=== PATIENT | male | born 1940 | race Caucasian/White ===

== ENCOUNTER → 2016-12-08 | Outpatient (CLI) | payer MEDICARE, MEDICAID ==
[~2016-12-08] MED LIST: Iopamidol 755 MG/ML 50 ML Bottle IV ONE
--- NOTE | 2016-12-08 14:53 | CT ---
CT of the abdomen and pelvis with contrast. HISTORY: Abdominal pain TECHNIQUE: Axial CT images were obtained of the abdomen and pelvis following administration of 85 mL of Isovue-370 in the right antecubital fossa without complication. Coronal and sagittal reconstruct ions obtained. FINDINGS: The lung bases are clear, no pleural effusion. Coronary artery calcifications are present. Tiny hepatic hypodensities are noted, too small to fully characterize. Otherwise the liver appears n ormal. The spleen, adrenal glands, and pancreas appear normal. The gallbladder is normal. There is n o bulky retroperitoneal lymphadenopathy or abdominal ascites. Minimal sebastian mesentery appearance. The kidneys enhance and function symmetrically without evidence of obstructive uropathy. There is a cyst within the upper pole of the left kidney. The large and small bowel are normal in caliber without evidence of obstruction. No pericolonic or p ericecal inflammation or stranding. The urinary bladder appears normal. No suspicious osseous abnormalities identified. Postsurgical changes are noted within the lower lumb ar spine. IMPRESSION: 1. No acute findings demonstrated within the abdomen or pelvis. 2. Tiny hepatic hypodensities, likely representing cysts.
== END ==
LOC: MW.DI 12:20
PROVIDERS: ATTEND Nurse Practitioner Family
DX: R10.9 Unspecified abdominal pain (principal)
CPT/HCPCS: 74177; Q9967

== ENCOUNTER 2018-03-02 08:02 | Day surgery (SDC) | payer MEDICARE, MEDICAID ==
[~2018-03-02 08:02] MED LIST changes: -Iopamidol 755 MG/ML 50 ML Bottle IV ONE; +Lactated Ringers 1,000 ML IV SCH; +Sodium Chloride 0.9% 2.5 ML Syringe FLUSH PRN; +ceFAZolin 1 GM in Premix Bag 1 BAG IV ONE
--- NOTE | 2018-03-02 09:12 | PCM.PREANE ---
Preanesthetic Assessment - Anesthesia/Transfusion/Family Hx Anesthesia History: Prior Anesthesia Without Reaction Other Type of Anesthesia Reaction Comment: "hard to wake following anesthesia" "wants no versed" Family History of Anesthesia Reaction: No Transfusion History: No Prior Transfusion(s) Intubation History: Unknown - Review of Systems General: No Symptoms Pulmonary: No Symptoms Cardiovascular: No Symptoms Gastrointestinal: No Symptoms Neurological: Other (right hand numbness) Other: Reports: None - Physical Assessment NPO Status Date: 03/01/18 NPO Status Time: 20:00 O2 Sat by Pulse Oximetry: 97 Respiratory Rate: 15 Vital Signs: Last Vital Signs Temp 36.1 C 03/02/18 08:15 Pulse 54 L 03/02/18 08:15 Resp 15 03/02/18 08:15 BP 131/69 03/02/18 08:15 Pulse Ox 97 03/02/18 08:15 Height: 1.65 m Weight: 74.843 kg ASA Class: 2 Mental Status: Alert & Oriented x3 Airway Class: Mallampati = 2 Dentition: Reports: [place](s) (x4 upper front) Thyro-Mental Finger Breadths: 3 Mouth Opening Finger Breadths: 2 ROM/Head Extension: Limited/Partial Lungs: Clear to Auscultation, Normal Respiratory Effort Cardiovascular: Regular Rate, Regular Rhythm - Allergies Allergies/Adverse Reactions: Allergies Allergy/AdvReac Type Severity Reaction Status Date / Time No Known Allergies Allergy Verified 02/25/18 10:22 - Blood Blood Available: No - Anesthesia Plan Pre-Op Medication Ordered: None - Acknowledgements Anesthesia Type Planned: General Anesthesia Pt an Appropriate Candidate for the Planned Anesthesia: Yes Alternatives and Risks of Anesthesia Discussed w Pt/Guardian: Yes Pt/Guardian Understands and Agrees with Anesthesia Plan: Yes PreAnesthesia Questionnaire HEENT History: Reports: Hard of Hearing, Impaired Vision Other HEENT History: wears glasses, left hearing aid Gastrointestinal History: Reports: Other (See Below) Other Gastrointestinal History: occasional heartburn, "stomach migraines" Genitourinary History: Reports: BPH, Prostate Disorder Musculoskeletal History: Reports: Other (See Below) Other Musculoskeletal History: numbness to rt hand and arm due to neuro surgery to neck Psychiatric History: Reports: Anxiety, Depression Oncologic (Cancer) History: Reports: Basal Cell Carcinoma Other Oncologic History: basal cell ca to face Dermatologic History: Reports: None - Past Surgical History HEENT Surgical History: Reports: Myringotomy w Tube(s) Neurological Surgical History: Reports: C-Spine, Lumbar Spine Other Neurological Surgeries/Procedures: neck surgery x2, back surgery x1 Musculoskeletal Surgical History: Reports: Carpal Tunnel (bilateral), Shoulder Surgery (right shoulder) Dermatological Surgical History: Reports: Skin Biopsy - SUBSTANCE USE Smoking Status *Q: Former Smoker (long time ago) Recreational Drug Use History: No - HOME MEDS Home Medications: Home Meds clonazePAM [Klonopin] 0.5 mg PO ASDIRECTED PRN 07/05/14 [History] - CURRENT (IN HOUSE) MEDS Current Meds: Current Medications Lactated Ringer's (Ringers, Lactated) 1,000 mls @ 100 mls/hr IV ASDIRECTED [facility] Last Admin: 03/02/18 09:03 Dose: 100 mls/hr Sodium Chloride (Saline Flush) 2.5 ml FLUSH ASDIRECTED PRN PRN Reason: Keep Vein Open Discontinued Medications Cefazolin Sodium/Dextrose 1 gm (/ Premix) 50 mls @ 100 mls/hr IV ONCALL ONE Stop: 03/02/18 00:30
[2018-03-02] MEDS ORDERED: Lidocaine 2% 5 ML SDV ONE (09:25)
[2018-03-02] MEDS ORDERED: fentaNYL 250 MCG/5 ML SDV ONE (09:26)
[2018-03-02] MEDS ORDERED: Propofol 200 MG/20 ML SDV ONE ×2 (09:26→09:29)
[2018-03-02] MEDS ORDERED: Glycopyrrolate 0.2 MG/ML SDV ONE (09:57)
[2018-03-02] MEDS ORDERED: fentaNYL 100 MCG/2 ML SDV IVPUSH PRN (10:26)
[2018-03-02] MEDS ORDERED: Belladonna Alkaloids/Opium 16.2-30 MG Supp RECTAL PRN (10:41)
[2018-03-02] MEDS ORDERED: D5 1/2 NS w/ 20 mEq/L KCl 1,000 ML IV SCH (10:45)
--- NOTE | 2018-03-02 11:20 | PCM.POSTAN ---
POST ANESTHESIA ASSESSMENT - MENTAL STATUS Mental Status: Alert - RESPIRATORY Respiratory Status: Respiratory Rate WNL, Airway Patent, O2 Saturation Stable - CARDIOVASCULAR CV Status: Pulse Rate WNL - GASTROINTESTINAL GI Status: No Symptoms - PAIN Pain Score: 4 - POST OP HYDRATION Hydration Status: Adequate & Stable - OBSERVATIONS Free Text/Narrative:: no anesthesia problems
--- NOTE | 2018-03-02 11:43 | OR ---
SURGEON: Juanito Silver M.D. DATE OF PROCEDURE: 03/02/2018 PREOPERATIVE DIAGNOSES: 1. Urinary retention. 2. Small prostate. POSTOPERATIVE DIAGNOSES: 1. Urinary retention. 2. Small prostate. OPERATION: TURP. DESCRIPTION OF THE PROCEDURE: The patient was given general anesthesia, placed in dorsal lithotomy position, prepped and draped in sterile drapes. The 26-Bengali resectoscope was introduced into the bladder without difficulty, but with some resistance. The prostate was resected in the usual manner starting with the floor going along laterally and anteriorly. At the end of the resection, all prostatic chips were removed. Both ureteral orifices were intact. The area of the external sphincter was intact. With that done, the resection was completed. A 22 three-way Davidson catheter was left in the bladder with 6 mL balloon connected to the TUR drip. The patient tolerated the procedure well and was moved to recovery room in good condition. ESTIMATED BLOOD LOSS: Under 100 mL. PARVIN / EDDI /[id number]
[2018-03-02] MEDS: Bacitracin Oint 28.35 GM Tube TOP SCH ×2 (13:45→21:08)
[2018-03-02] MEDS ORDERED: Sodium Chloride 0.9% 500 ML IV SCH ×2 (18:45→20:30)
[2018-03-02] MEDS ORDERED: Acetaminophen 325 MG Tab PO PRN (20:28)
[2018-03-02] MEDS: Docusate Sodium 100 MG Cap PO SCH (21:07)
[2018-03-02] MEDS: Lactated Ringers 1,000 ML IV SCH (23:15)
[2018-03-03] MEDS: Lactated Ringers 1,000 ML IV SCH (04:25)
[2018-03-03] MEDS: Bacitracin Oint 28.35 GM Tube TOP SCH ×2 (07:30→14:30)
--- NOTE | 2018-03-03 07:46 | PCM48HPAN ---
Post Anesthesia Note - EVALUATION WITHIN 48HRS OF ANESTHETIC Vital Signs in Normal Range: Yes Patient Participated in Evaluation: Yes Respiratory Function Stable: Yes Airway Patent: Yes Cardiovascular Function Stable: Yes Hydration Status Stable: Yes Pain Control Satisfactory: Yes Nausea and Vomiting Control Satisfactory: Yes Mental Status Recovered: Yes Resp Rate: 18
[2018-03-03] MEDS: Docusate Sodium 100 MG Cap PO SCH (08:24)
--- NOTE | 2018-03-03 09:48 | PCM.SN ---
- Free Text/Narrative Note: doing well stable w up for hypotension post op was nl blood pr this am is low nl lab work is nl
[2018-03-03] MEDS ORDERED: Sodium Chloride 0.9% 10 ML Syringe FLUSH PRN (10:07)
[2018-03-03] MEDS ORDERED: Sodium Chloride 0.9% 2.5 ML Syringe FLUSH PRN (10:07)
[2018-03-03 16:40] VITALS: BP 114/62
--- NOTE | 2018-03-04 09:02 | DISCH ---
DATE OF DISCHARGE: 03/03/2018 PRIMARY CARE PHYSICIAN: Alexandra Mendez DO This 77 years old was admitted to the hospital and had a TURP yesterday. He had an episode of urinary retention in the past. Postoperatively, he did very well. The catheter was removed on the first postop day and he was discharged on the first postop day. He is to come back as needed. Pathology is pending. The patient's condition at the time of discharge is excellent. His vital signs are normal. His blood pressure is normal. He is afebrile. His urine is reasonably clear. PARVIN / EDDI /[id number]
== END 2018-03-03 17:57 | disposition home or self-care (01) ==
LOC: MW.SDS 08:02 → UNDOADMOB 11:58 → MW.MS 11:58 → MW.SDS 03-03 17:57 → UNDODISOB 03-03 17:57
PROVIDERS: ATTEND Urology
DX: N41.1 Chronic prostatitis (principal); N40.1 Benign prostatic hyperplasia with lower urinary tract symptoms; R33.8 Other retention of urine; R35.1 Nocturia; F41.9 Anxiety disorder, unspecified; F32.9 Major depressive disorder, single episode, unspecified; G25.81 Restless legs syndrome; Z87.891 Personal history of nicotine dependence; Z79.899 Other long term (current) drug therapy
CPT/HCPCS: 36415; 52601; 80051; 84132; 84295; 84484; 85014; 85018; 85025; 88305; 93005; A9270; J3010; J3480; J7040; J7120; 00914; J2704